=== PATIENT | male | born 1955 | race Hispanic/Latino ===

== ENCOUNTER 2024-06-18 16:35 | Emergency (ER) | payer OTHER ==
[~2024-06-18] VITALS: Ht 170.2 cm; Wt 71.7 kg
--- NOTE | 2024-06-18 16:40 | NUR ---
PT TO CT WITH RN.
--- NOTE | 2024-06-18 16:48 | NUR ---
PT BACK FROM CT WITH RN AT THIS TIME.
--- NOTE | 2024-06-18 16:50 | NUR ---
TRANSFER OUT FOR NEUROLOGY SERVICE FOR SUBACUTE INFARCT PER DR KENDRICK. SHALA OH
--- NOTE | 2024-06-18 16:54 | HMCIMG ---
CT HEAD WITHOUT CONTRAST INDICATION: Right-sided weakness TECHNIQUE: Noncontrast axial helical CT images from the vertex through the skull base using 5 mm slice thickness without contrast material. CT was performed with one or more of the following dose reduction techniques: Automated exposure control, adjustment of the mA and/or kV according to patient size, or use of iterative reconstruction technique. COMPARISON: None FINDINGS: 1.8 cm long by 0.7 cm wide low attenuating lesion within the posterior left basal ganglia between the internal and external capsules. The cerebral and cerebellar hemispheres are age-appropriate in appearance. No evidence for abnormal extra-axial fluid collections or masses. The ventricles and sulci are normal in size and configuration. No evidence for intracranial parenchymal, epidural, or subdural hemorrhage, mass effect or midline shift. The brainstem and cerebellum appear normal. The visualized orbits appear unremarkable. The visible paranasal sinuses and mastoid air cells are clear. The calvarium appears normal. IMPRESSION: 1.8 cm long by 0.7 cm wide low attenuating lesion within the posterior left basal ganglia between the internal and external capsules suggesting subacute infarct, no evidence for hemorrhage or any other consultation. This examination was provided for interpretation at 4:49 PM. Above findings discussed with Dr. Weaver at 4:49 PM on 06/18/24 via telephone prior to finalization of this report.
--- NOTE | 2024-06-18 16:56 | EKG ---
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
--- NOTE | 2024-06-18 16:57 | ERN ---
General Chief Complaint: Stroke Symptoms Stated Complaint: STROKE SYMPTOMS Time Seen by MD: 16:38 Source: patient History of Present Illness Initial Comments Patient is a 68-year-old male coming in to be evaluated for right upper extremity weakness. Per patient last night at 12:00 p.m. he went to sleep normal neurological functioning. He states he woke up at seven in the morning and he noticed right upper extremity weakness. He is here for further evaluation. Allergies: Coded Allergies: No Known Drug Allergies (Unverified Allergy, Unknown, 06/18/24) ROS Dictation CONSTITUTIONAL: No chills, no fever, no weakness, no diaphoresis, no malaise. HEAD/FACE: No signs of trauma. EENT: No eye pain, no blurred vision, no tearing, no double vision, no ear pain, no ear discharge, no nose pain, no nasal congestion, no throat pain, no th roat swelling, no mouth pain. RESPIRATORY: No cough, no orthopnea, no SOB, no stridor, no wheezing. CARDIOVASCULAR: No chest pain, no edema, no palpitations, no syncope. GASTROINTESTINAL/ABDOMINAL: No abdominal pain, no constipation, no diarrhea, no nausea, no vomiting. GENITOURINARY: No abnormal discharge, no dysuria, no frequent urination, no hematuria. No complaints of pain in the genitals. MUSCULOSKELETAL: No back pain, no gout, no joint pain, no joint swelling, no muscle pain, no muscle stiffness, no neck pain. INTEGUMENTARY: No change in color, no change in hair/nails, no dryness, no lesion, no lumps, no rash. NEUROLOGICAL/PSYCH: No anxiety, not depressed, no emotional problem, no headache, no numbness, no pre-existing deficit, no history of seizures, no tremors, no weakness. HEMATOLOGIC/LYMPHATIC: Not anemic, no history of blood clots, no apparent bleeding, no bruising, glands not swollen. All Systems Negative, Except as Noted. Physical Exam Physical Exam Dictation VITAL SIGNS: Reviewed. GENERAL APPEARANCE: Alert, oriented x3, no acute distress, obese. HEAD AND FACE: Non-traumatic. EYES: PERRL, pink conjunctivas, eyelid no trauma, anterior chamber clear. EARS: Pinnas intact and no signs of trauma or erythema. Ear canals clear and no discharge. TMs no erythema. NOSE: No discharge, no bleeding. OROPHARYNX: Mouth normal, teeth no caries, tongue pink. Pharynx clear, no erythema. Tonsils no exudates, no abscesses noted. Mucous membrane moist. NECK: Supple, non-tender, no thyromegaly, no masses, no JVD, no bruits. BREAST: Deferred. CHEST: No tenderness, no crepitus, no paradoxical movement, no retractions. LUNGS: Clear, well-ventilated, symmetric, no rales, no wheezing, no rhonchi, no stridor, good breath sounds bilaterally. HEART: Regular rate, regular rhythm, no murmur, no gallops. VASCULAR: No peripheral edema. ABDOMEN: Soft, positive bowel sounds, nondistended, no guarding, nontender, no rebound, no masses no hepatomegaly, no splenomegaly, no Clemens's sign, no hernias. RECTAL: Deferred. GENITAL: Deferred. NEUROLOGICAL: Normal speech, gross motor function intact, gross sensory function intact. MUSCULOSKELETAL: Neck nontender, full range of motion, back nontender, full range of motion. EXTREMITIES: Nontender, full range of motion. SKIN: Color pink, dry, no turgor, no rash, no lacerations, no abrasions, no contusions. LYMPHATICS: Deferred. Results Laboratory and Microbiology Lab and Micro Result Laboratory Tests Test 06/18/24 17:13 White Blood Count 5.4 K/uL (4.8-10.8) Red Blood Count 4.66 MIL/uL (4.50-6.20) Hemoglobin 14.6 g/dL (14.0-18.0) Hematocrit 40.3 % (42-54) L Mean Corpuscular Volume 86.5 fL (79-99) Mean Corpuscular Hemoglobin 31.3 pg (27.0-33.0) Mean Corpuscular Hemoglobin Concent 36.2 g/dL (32.0-36.0) H Red Cell Distribution Width 12.1 % (11.0-15.5) Platelet Count 146 K/uL (130-400) Mean Platelet Volume 10.0 fL (7.5-10.5) Immature Granulocyte % (Auto) 0.6 % (0-1) Neutrophils (%) (Auto) 67.3 % (40.0-77.0) Lymphocytes (%) (Auto) 19.3 % (21.0-51.0) L Monocytes (%) (Auto) 9.8 % (3.0-13.0) Eosinophils (%) (Auto) 2.6 % (0.0-8.0) Basophils (%) (Auto) 0.4 % (0.0-5.0) Neutrophils # (Auto) 3.6 K/uL (1.8-7.7) Lymphocytes # (Auto) 1.0 K/uL (1.0-4.8) Monocytes # (Auto) 0.5 K/uL (0.1-1.0) Eosinophils # (Auto) 0.14 K/uL (0.00-0.70) Basophils # (Auto) 0.02 K/uL (0.00-0.20) Absolute Immature Granulocyte (auto 0.03 K/uL (0-1) Nucleated Red Blood Cells 0.0 % (0.0-0.19) Prothrombin Time 11.2 SEC (9.6-11.6) Prothromb Time International Ratio 1.06 (0.85-1.15) Activated Partial Thromboplast Time 26.7 SEC (26.3-35.5) Sodium Level 134 mmol/L (136-145) L Potassium Level 3.5 mmol/L (3.5-5.1) Chloride Level 99 mmol/L (101-111) L Carbon Dioxide Level 31 mmol/L (21-32) Blood Urea Nitrogen 20 mg/dL (7-18) H Creatinine 1.3 mg/dL (0.5-1.3) Glomerular Filtration Rate Calc 60 mL/min (>90) Random Glucose 251 mg/dL (70-105) H Total Calcium 8.2 mg/dL (8.5-10.1) L Total Creatine Kinase 234 U/L (21-232) H Troponin I High Sensitivity 16 ng/L (4-75) B-Type Natriuretic Peptide 254 pg/mL (0-100) H LDL Cholesterol 111 mg/dL (0-99) H Labs Reviewed?: Yes EKG/XRAY/US/CT/MRI EKG Comment 06/18/2024 time 4:53 p.m. Ventricular rate 63 Sinus rhythm [place] [address] wave elevation or depression X-RAY Comment [address] [address] IMAGING REPORT Signed PATIENT: AGA NOLAND MR#: [id number] : 1955 SEX: M AGE: 68 LOCATION: ED ORDER 38 STATUS: REG ER [facility] REPORT#: [id number] SERVICE 37 REASON: cp ORDERING PHYSICIAN: MESHA KENDRICK MD PROCEDURE: CXR1VW - CHEST 1VW PORTABLE CHEST RADIOGRAPH INDICATION: cp COMPARISON: None FINDINGS: Heart size is normal. The pulmonary vascularity and blanca appear normal. No abnormal pulmonary parenchymal opacity or consolidation identified. No significant pleural effusion noted. No pneumothorax detected. IMPRESSION: No radiographic evidence for any acute cardiopulmonary process. DICTATED BY: PRABHA DAVENPORT MD DATE: 06/18/241700 ELECTRONICALLY SIGNED BY: PRABHA DAVENPORT MD DATE: 06/18/241702 CT Scan Comment [address] [address] IMAGING REPORT Signed PATIENT: AGA NOLAND MR#: [id number] : 1955 SEX: M AGE: 68 LOCATION: [facility] ORDER 38 STATUS: REG ER REPORT#: [id number] SERVICE 37 REASON: right side weakness ORDERING PHYSICIAN: MESHA KENDRICK MD PROCEDURE: HEAD WO - CT HEAD/BRAIN W/O CONTRAST CT HEAD WITHOUT CONTRAST INDICATION: Right-sided weakness TECHNIQUE: Noncontrast axial helical CT images from the vertex through the skull base using 5 mm slice thickness without contrast material. CT was performed with one or more of the following dose reduction techniques: Automated exposure control, adjustment of the mA and/or kV according to patient size, or use of iterative reconstruction technique. COMPARISON: None FINDINGS: 1.8 cm long by 0.7 cm wide low attenuating lesion within the posterior left basal ganglia between the internal and external capsules. The cerebral and cerebellar hemispheres are age-appropriate in appearance. No evidence for abnormal extra-axial fluid collections or masses. The ventricles and sulci are normal in size and configuration. No evidence for intracranial parenchymal, epidural, or subdural hemorrhage, mass effect or midline shift. The brainstem and cerebellum appear normal. The visualized orbits appear unremarkable. The visible paranasal sinuses and mastoid air cells are clear. The calvarium appears normal. IMPRESSION: 1.8 cm long by 0.7 cm wide low attenuating lesion within the posterior left basal ganglia between the internal and external capsules suggesting subacute infarct, no evidence for hemorrhage or any other consultation. This examination was provided for interpretation at 4:49 PM. Above findings discussed with Dr. Kendrick at 4:49 PM on 06/18/24 via telephone prior to finalization of this report. DICTATED BY: PRABHA DAVENPORT MD DATE: 06/18/241648 ELECTRONICALLY SIGNED BY: PRABHA DAVENPORT MD DATE: 06/18/241653 [facility] MDM: Differential diagnosis: CVA, TIA, hemorrhagic stroke, Rationale: Tests considered and ordered secondary to shared decision making include: labs, ECG and radiology Previous outside records reviewed: Old ER visits. Risk of complication and/or morbidity or mortality of patient management: None Medications-Per medication reconciliation Need for hospitalization: Patient does meet criteria for hospitalization. Need for emergency major/minor surgery: No There are no social concerns with this patient. Prescription drug management Prescriptions will include symptomatic care Patient's prior external medical records from other ER visits were reviewed by me as indicated. Prior testing and results from previous visits were reviewed. Prior tests were taken into account with medical decision making and resource utilization, independent historian/historians were used to obtain complete medical history. I independently interpreted the test that were performed, results were reviewed by me and considered findings on radiology if ordered. Medical management and examination interpretation discussions were had by me with other qualified healthcare professionals as indicated for the patient's care. Patient is a 68-year-old male coming in to be evaluated for right-sided weakness which began at 7:00 a.m. in the morning. Per patient last well known that he remembers was 11:00 a.m. midnight. He states he woke up at seven and was not able to ambulate due to the right and upper and lower extremity weakness. Patient states he had decided to wait till 4:00 a.m. to be transf erred to [facility] ER. Per his request. Patient states that his symptoms have improved on evaluation in triage right lower extremity right upper extremity had regained strength right upper extremity was more weak than lower extremity. NIH of two at the time of observation in triage. CT disclose a subacute stroke on the left basal ganglia. Patient will be transferred to [facility] spoke to Dr. BILLINGSLEY neurologist at [facility], DR. DEJESUS HOSPITALIST ACCEPTING PATIENT. ED Course Orders Procedure Category Date Status Time Cbc With Differential LAB 06/18/24 In Process 16:38 Prothrombin Time With LAB 06/18/24 Complete INR 16:38 Partial LAB 06/18/24 Complete Thromboplastin Time 16:38 Ct Head/Brain W/O CT 06/18/24 Resulted Contrast 16:38 Chest 1vw RAD 06/18/24 Resulted 16:38 12 Lead Ekg Tracing- EKG 06/18/24 Complete Technical 16:38 Creatine Kinase, Total LAB 06/18/24 Complete 16:38 Ldl Direct LAB 06/18/24 Complete 16:38 Troponin I High LAB 06/18/24 Complete Sensitivity 16:38 Urinalysis Profile LAB 06/18/24 Logged 16:38 B-Type Natriuretic LAB 06/18/24 In Process Peptide 16:38 Bedside Glucose CPOE 06/18/24 Transmitted Fingerstick 16:38 Basic Metabolic Panel LAB 06/18/24 Complete 16:38 Drug Screen Urine LAB 06/18/24 Logged 16:57 Clonidine Hcl 0.1 Mg PHA 06/18/24 Complete Tablet (Catapres 0. 17:30 Clonidine Hcl 0.1 Mg PHA 06/18/24 Complete Tablet (Catapres 0. 17:06 Current Medications Medications (Trade) Dose Ordered Sig/Sunny Route PRN Reason Start Time Stop Time Status Last Admin Dose Admin Clonidine HCl (CATApres 0.1 mg TAB) 0.1 mg ONCE ONCE PO 06/18/24 17:30 06/18/24 17:31 DC 06/18/24 17:11 Clonidine HCl (CATApres 0.1 mg TAB) 0.1 mg STK-MED ONCE .ROUTE 06/18/24 17:06 06/18/24 17:07 DC Vital Signs Date Time Temp Pulse Resp B/P (MAP) Pulse Ox O2 Delivery O2 Flow Rate FiO2 06/18/24 17:35 98.2 59 14 203/96 97 Room Air* 0 21 06/18/24 17:11 64 234/103 06/18/24 16:35 98.2 64 14 234/103 99 Room Air 0 06/18/24 16:35 98.2 64 14 234/103 99 Room Air* 0 21 Critical Care Note Comments CRITICAL CARE PROCEDURE NOTE AUTHORIZED AND PERFORMED BY: ME TOTAL CRITICAL CARE TIME: APPROXIMATELY 36 MINUTES DUE TO A HIGH PROBABILITY OF CLINICALLY SIGNIFICANT, LIFE THREATENING DETERIORATION, THE PATIENT REQUIRED MY HIGHEST LEVEL OF PREPAREDNESS TO INTERVENE EMERGENTLY AND I PERSONALLY SPENT THIS CRITICAL CARE TIME DIRECTLY AND PERSONALLY MANAGING THE PATIENT. THIS CRITICAL CARE TIME INCLUDED OBTAINING A HISTORY; EXAMINING THE PATIENT; PULSE OXIMETRY; ORDERING AND REVIEW OF STUDIES; ARRANGING URGENT TREATMENT WITH DEVELOPMENT OF A MANAGEMENT PLAN; EVALUATION OF PATIENT'S RESPONSE TO TREATMENT; FREQUENT REASSESSMENT; AND, DISCUSSIONS WITH OTHER PROVIDERS. THIS CRITICAL CARE TIME WAS PERFORMED TO ASSESS AND MANAGE THE HIGH PROBABILITY OF IMMINENT, LIFE-THREATENING DETERIORATION THAT COULD RESULT IN MULTI-ORGAN FAILURE. IT WAS EXCLUSIVE OF SEPARATELY BILLABLE PROCEDURES AND TREATING OTHER PATIENTS AND TEACHING TIME. PLEASE SEE MDM SECTION AND THE REST OF THE NOTE FOR FURTHER INFORMATION ON PA TIENT ASSESSMENT AND TREATMENT. DX & DISP Disposition: Transfer Decision to Admit Time: 18:02 Departure Impression: Primary Impression: CVA (cerebral vascular accident) Condition: Stable MESHA KENDRICK MD Jun 18, 2024 16:57
--- NOTE | 2024-06-18 17:03 | HMCIMG ---
PORTABLE CHEST RADIOGRAPH INDICATION: cp COMPARISON: None FINDINGS: Heart size is normal. The pulmonary vascularity and blanca appear normal. No abnormal pulmonary parenchymal opacity or consolidation identified. No significant pleural effusion noted. No pneumothorax detected. IMPRESSION: No radiographic evidence for any acute cardiopulmonary process.
--- NOTE | 2024-06-18 17:10 | NUR ---
BEDSIDE SWALLOW TEST PREFORMED BY PRIMARY NURSE PT IS ABLE TO TOLERATE FLUIDS WITH NO COMPLICATIONS.
[2024-06-18] MEDS: cloNIDine HCL 0.1 MG TABLET ONE (17:11)
[2024-06-18] MEDS: cloNIDine HCL 0.1 MG TABLET PO ONE (17:11)
--- NOTE | 2024-06-18 17:19 | NUR ---
TRANSFER CALL PLACE TO [facility] [phone] SPOKE WITH RAFAEL INTAKE NURSE INFORMATION PROVIDED AND WILL CALL BACK. SHALA OH
[2024-06-18 17:21] LABS: BASOPHILS # (AUTO) 0.02 K/uL (0.00-0.20); BASOPHILS % (AUTO) 0.4 % (0.0-5.0); EOSINOPHILS # (AUTO) 0.14 K/uL (0.00-0.70); EOSINOPHILS % (AUTO) 2.6 % (0.0-8.0); HEMATOCRIT 40.3 % (42-54); IMMATURE GRANULOCYTE ABSOLUTE 0.03 K/uL (0-1); LYMPHOCYTES % (AUTO) 19.3 % (21.0-51.0); MEAN CORPUSCULAR HEMOGLOBIN 31.3 pg (27.0-33.0); MEAN CORPUSCULAR HGB CONC 36.2 g/dL (32.0-36.0); MEAN CORPUSCULAR VOLUME 86.5 fL (79-99); MONOCYTES # (AUTO) 0.5 K/uL (0.1-1.0); MONOCYTES % (AUTO) 9.8 % (3.0-13.0); NEUTROPHILS # (AUTO) 3.6 K/uL (1.8-7.7); NEUTROPHILS % (AUTO) 67.3 % (40.0-77.0); PLATELET COUNT (AUTO) 146 K/uL (130-400); RED BLOOD CELL COUNT(AUTO) 4.66 MIL/uL (4.50-6.20); RED CELL DISTRIBUTION WIDTH 12.1 % (11.0-15.5); WHITE BLOOD COUNT (AUTO) 5.4 K/uL (4.8-10.8)
[2024-06-18 17:31] LABS: CREATININE 1.3 mg/dL (0.5-1.3); POTASSIUM 3.5 mmol/L (3.5-5.1)
[2024-06-18 17:34] LABS: INR 1.06 (0.85-1.15); PROTHROMBIN TIME 11.2 SEC (9.6-11.6)
--- NOTE | 2024-06-18 17:35 | NUR ---
PT MOVED TO ER ROOM 14
[2024-06-18 17:36] LABS: PARTIAL THROMBOPLASTIN TIME 26.7 SEC (26.3-35.5)
[2024-06-18 17:42] LABS: B-TYPE NATRIURETIC PEPTIDE 254 pg/mL (0-100)
[2024-06-18] MEDS: niCARDIpine 25MG INJ 25 MG in 0.9% NACL 250ML 240 ML IV SCH (18:18)
--- NOTE | 2024-06-18 18:21 | CONS ---
CONSULT NOTE: [place] [facility] Note # Demographics Consult Type: Acute Stroke Level 1 (0-4.5 hrs) Patient Location: Emergency Room First Name: AGA Last Name: NUZHAT Date of : 1955 Age: 68 Gender: Male Facility: [facility] Time of Initial Page (Central Time): 06/18/2024 16:42 Time of Return Call (Central Time): 06/18/2024 16:42 # HPI Chief Complaint: - weakness (focal) History: 68 y/o M presents with RUE weakness and numbness. Last normal last night. Seen with symptoms at 7 or 8 AM today. No thinners at baseline. Getting CT at time of alert. Patient reports the weakness was present when he woke up. No associated pain. No similar symptoms previously. Leg also feels asleep # Scores Time of exam and NIHSS (Central Time): 06/18/2024 16:52 Level of Consciousness 1a: [0] = Alert; keenly responsive LOC Questions 1b: [0] = Answers both questions correctly LOC Commands 1c: [0] = Performs both tasks correctly Best Gaze 2: [0] = Normal Visual 3: [0] = No visual loss Facial Palsy 4: [0] = Normal symmetrical movements Motor Arm Left 5a: [0] = No drift Motor Arm Right 5b: [1] = Drift Motor Leg Left 6a: [0] = No drift Motor Leg Right 6b: [1] = Drift Limb Ataxia 7: [0] = Absent Sensory 8: [1] = Nypd-gs-incmjgzd sensory loss Best Language 9: [0] = No aphasia Dysarthria 10: [0] = Normal Extinction and Inattention 11: [0] = No abnormality NIHSS Total: 3 # Data Head CT: - subacute ischemic stroke - per radiologist read left basal ganglia infarct # Assessment Impression: - Ischemic Stroke (Subacute) # Plan Thrombolytic/Intervention: NOT IV Thrombolysis or IA Intervention candidate Thrombolytic Exclusion: > 4.5 hours Intraarterial Exclusion: - clinical exam not consistent with presence of large vessel occlusion (LVO), can reconsider if LVO found on vascular imaging Target Blood Pressure: SBP < 220 Labs: - lipid panel - hemoglobin A1c Imaging: (urgency: STAT): - CT Angiogram Head and CT Angiogram Neck AND call back with results if abnormal Imaging: (urgency: routine): - MRI Brain without contrast Diagnostic Test: - echo without bubble study Therapy/Evaluation: - PT/OT evaluation - speech/swallow consultation Medication: - aspirin 81 mg PLUS clopidogrel (Plavix) 75 mg for 21 days, then monotherapy therafter Other: - If patient has any neurological deterioration please call me back immediately - LDL < 70 - permissive hypertension - telemetry monitoring - I have discussed my recommendations with the referring provider # Logistics Attestation of consult completion: The patient is located at: [facility]. Facility staff participated in the visit. I performed this telemedicine visit from my offsite office utilizing interactive 2 way audio and visual telecommunication technology. Total time spent in telemedicine encounter: I spent 20 minutes reviewing clinical data and/or imaging, obtaining history, examining the patient, communicating with the onsite care team, and in preparation of this report. # Demographics First Name: AGA Last Name: NUZHAT Facility: [facility] MAYTE REBOLLAR MD Jun 18, 2024 18:21
--- NOTE | 2024-06-18 18:25 | NUR ---
TRANSFER FOLLOW UP PER INTAKE NURSE PT IS ACCEPTED PENDING A BED . PRIMARY NURSE MADE AWARE AND REPORT WILL BE GIVEN TO INCOMING HS. SHALA OH
--- NOTE | 2024-06-18 18:54 | NUR ---
HELD CARDENE 2.5MG/HR BP 166/79 HR 63
--- NOTE | 2024-06-18 22:25 | NUR ---
TRANSFER PT. WAS ACCEPTED @ 1802 BY Sammy DEJESUS MD FOR TRANSFER TO [facility]. BED ASSIGNMENT AT THIS TIME: ROOM 1335. REPORT: [id number]
--- NOTE | 2024-06-18 22:31 | NUR ---
[facility] CALLED FOR TRANSPORT OF MONITORED PATIENT
--- NOTE | 2024-06-18 23:05 | NUR ---
[place] [facility] [place]OM [facility], ROD LUCIANO
[2024-06-19 00:54] VITALS: BP 125/71; PULSE 70; RESP 15; TEMP 98.4; O2SAT 99
--- NOTE | 2024-06-19 00:54 | NUR ---
[facility] CAME IN TO PICK PT, REPORT GIVEN
== END 2024-06-19 01:00 | disposition short-term general hospital (02) ==
LOC: EDH 16:35
DX: I63.9 Cerebral infarction, unspecified (principal)
CPT/HCPCS: 99291; 96366; 96365; 70450; 82550; 83721; 84484; 80048; 83880; 85025; 85610; 85730; 36415; 71045; 93005; J3490; J7050